=== PATIENT | male | born 1980 | race Two or more races ===

== ENCOUNTER 2016-08-22 12:25 | Emergency (ER) | payer MEDICAID ==
[~2016-08-22] VITALS: Ht 154.9 cm; Wt 74.8 kg
[2016-08-22 13:25] LABS: Basophils # (auto) 0.1 uL; Basophils % (auto) 0.7 % (0.0-2.0); DEFINITIVE VIEW TRANSMISSION; Eosinophils # (auto) 1.3 uL; Eosinophils % (auto) 11.8 % (0.0-7.0); Hematocrit 46.8 % (41.0-53.0); Hemoglobin 16.3 g/dL (13.5-17.5); Lymphocytes # (auto) 3.1 uL; Lymphocytes % (auto) 29.1 % (10.0-50.0); Mean Corpuscular Hemoglobin 31.3 pg (28.0-32.0); Mean Corpuscular Hgb Conc. 34.8 g/dL (32.0-36.0); Mean Corpuscular Volume 89.8 fL (80.0-100.0); Mean Platelet Volume 9.5 fL (7.4-10.4); Monocytes # (auto) 0.7 uL; Monocytes % (auto) 6.2 % (0.0-12.0); Neutrophils # (auto) 5.6 uL; Neutrophils % (auto) 52.2 % (37.0-80.0); Platelet Count (auto) 275 10^3/uL (140-450); Red Cell Distribution Width 12.3 % (11.6-16.0); White Blood Cell 10.8 10^3/uL (4.4-10.8)
[2016-08-22 13:46] LABS: Albumin 3.8 g/dL (3.4-5.0); BUN/Creatinine Ratio 21.1; Calcium 8.5 mg/dL (8.5-10.1); Potassium 3.5 mmol/L (3.5-5.1)
[2016-08-22 13:48] LABS: Bilirubin, Total 0.4 mg/dL (0.2-1.0); Total Protein 7.6 g/dL (6.4-8.2)
[2016-08-22 15:56] VITALS: BP 145/91
== END 2016-08-22 16:15 | disposition home or self-care (01) ==
LOC: ER 12:32
DX: S40.261A Insect bite (nonvenomous) of right shoulder, initial encounter (principal); W57.XXXA Bitten or stung by nonvenomous insect and other nonvenomous arthropods, initial encounter; Y93.89 Activity, other specified; Y99.8 Other external cause status; Y92.89 Other specified places as the place of occurrence of the external cause
CPT/HCPCS: 36415; 80053; 85025

== ENCOUNTER 2017-05-17 15:45 | Emergency (ER) | payer MEDICAID ==
[~2017-05-17] VITALS: Ht 154.9 cm; Wt 74.8 kg
[2017-05-17 16:16] VITALS: BP 148/93
== END 2017-05-17 22:30 | disposition home or self-care (01) ==
LOC: ER 15:45
DX: J40 Bronchitis, not specified as acute or chronic (principal); R42 Dizziness and giddiness
CPT/HCPCS: 71046; 93005

== ENCOUNTER 2020-07-21 16:21 | Emergency (ER) | payer MEDICAID, OTHER ==
[~2020-07-21] VITALS: Ht 157.5 cm; Wt 70.3 kg
[2020-07-21 18:15] VITALS: BP 130/66
== END 2020-07-21 20:11 | disposition home or self-care (01) ==
LOC: ER 16:21
DX: S46.911A Strain of unspecified muscle, fascia and tendon at shoulder and upper arm level, right arm, initial encounter (principal); X50.1XXA Overexertion from prolonged static or awkward postures, initial encounter; Y93.89 Activity, other specified; Y92.89 Other specified places as the place of occurrence of the external cause; Y99.8 Other external cause status

== ENCOUNTER 2022-05-08 01:12 | Emergency (ER) | payer MEDICAID, OTHER ==
[~2022-05-08] VITALS: Ht 152.4 cm; Wt 77.5 kg
[2022-05-08] MEDS ORDERED: cefTRIAXone SOD 1,000 MG VL IM ONE (07:15)
[2022-05-08] MEDS ORDERED: PROM1SOL4 PO (07:31)
[2022-05-08] MEDS ORDERED: AZIT500T66 PO (07:31)
[2022-05-08 07:55] VITALS: BP 168/98
== END 2022-05-08 08:00 | disposition home or self-care (01) ==
LOC: ER 01:12
DX: J03.90 Acute tonsillitis, unspecified (principal)
CPT/HCPCS: 71046; 96372; 99283; J0696

== ENCOUNTER 2023-07-14 19:32 | Emergency (ER) | payer MEDICAID ==
[~2023-07-14] VITALS: Ht 154.9 cm; Wt 75.0 kg
[~2023-07-14 19:32] MED LIST: AZIT500T66 PO; PROM1SOL4 PO
[2023-07-14] MEDS ORDERED: CIPR500T4 PO (22:38)
[2023-07-14] MEDS ORDERED: ACET500T58 PO (22:38)
[2023-07-14] MEDS: cefTRIAXone SOD 1,000 MG VL IM ONE (22:45)
[2023-07-14 22:56] VITALS: BP 149/96; PULSE 88; RESP 18; TEMP 98.6; O2SAT 99
[2023-07-14] MEDS: TETANUS-DIPTH-ACEL PERTUSSIS 0.5ML SYR Tdap IM ONE (23:03)
== END 2023-07-14 23:32 | disposition home or self-care (01) ==
LOC: ER 19:32
DX: S91.332A Puncture wound without foreign body, left foot, initial encounter (principal); W22.8XXA Striking against or struck by other objects, initial encounter; Y93.01 Activity, walking, marching and hiking; Y92.89 Other specified places as the place of occurrence of the external cause; Y99.8 Other external cause status
CPT/HCPCS: 90471; 90715; 96372; 99284; J0696